=== PATIENT | female | born 1990 | race Two or more races ===

== ENCOUNTER 2017-11-05 21:21 | Emergency (ER) | payer OTHER ==
[~2017-11-05] VITALS: Ht 160 cm; Wt 74.4 kg
[~2017-11-05 21:21] MED LIST: PEPCID40 MG PO; ZOFRAN4 MG PO
[2017-11-06] MEDS ORDERED: MAALOX MAXIMUM355 ML PO (05:09)
[2017-11-06] MEDS ORDERED: ZANTAC300 MG PO (05:09)
[2017-11-06] MEDS ORDERED: OMEPRAZOLE40 MG PO (05:09)
== END 2017-11-06 05:21 | disposition home or self-care (01) ==
LOC: ER 21:21
DX: K29.70 Gastritis, unspecified, without bleeding (principal)

== ENCOUNTER 2019-08-20 16:52 | Emergency (ER) | payer OTHER ==
[~2019-08-20] VITALS: Ht 160 cm; Wt 71.7 kg
[~2019-08-20 16:52] MED LIST changes: +MAALOX MAXIMUM355 ML PO; +OMEPRAZOLE40 MG PO; +ZANTAC300 MG PO
== END 2019-08-20 22:01 | disposition home or self-care (01) ==
LOC: ER 16:52
DX: O46.8X1 Other antepartum hemorrhage, first trimester (principal); Z3A.08 8 weeks gestation of pregnancy

== ENCOUNTER 2019-12-05 20:19 | Emergency (ER) | payer OTHER ==
[~2019-12-05] VITALS: Ht 160 cm; Wt 69.4 kg
== END 2019-12-06 00:06 | disposition home or self-care (01) ==
LOC: ER 20:19
DX: K83.8 Other specified diseases of biliary tract (principal); R10.11 Right upper quadrant pain

== ENCOUNTER 2020-06-11 11:31 | Emergency (ER) | payer OTHER ==
[~2020-06-11] VITALS: Ht 160 cm; Wt 66.7 kg
[2020-06-11] MEDS ORDERED: LEVSIN/SL0.125 MG PO (16:15)
[2020-06-11] MEDS ORDERED: KETO10TA2 PO (16:15)
[2020-06-11] MEDS ORDERED: PEPCID AC20 MG PO (16:15)
== END 2020-06-11 16:30 ==
LOC: ER 11:31
DX: R10.11 Right upper quadrant pain (principal)

== ENCOUNTER 2020-06-15 19:34 | Emergency (ER) | payer OTHER ==
[~2020-06-15] VITALS: Ht 160 cm; Wt 67.1 kg
[~2020-06-15 19:34] MED LIST changes: +KETO10TA2 PO; +LEVSIN/SL0.125 MG PO; +PEPCID AC20 MG PO
== END 2020-06-15 22:43 | disposition home or self-care (01) ==
LOC: ER 19:34
DX: R10.11 Right upper quadrant pain (principal); R10.31 Right lower quadrant pain